=== PATIENT | female | born 2005 | race Two or more races ===

== ENCOUNTER → 2024-01-05 12:05 | Outpatient (REF) | payer OTHER, SELFPAY | LOC: HWRAD 12:05 | PROVIDERS: ATTENDING PHYSICIAN Physician Assistant Medical | DX: R19.7 Diarrhea, unspecified (principal) | CPT/HCPCS: 74177; Q9967 ==

== ENCOUNTER 2024-01-25 06:31 | Day surgery (SDC) | payer OTHER, SELFPAY ==
[2024-01-25 08:39] VITALS: BMI 30.3
[2024-01-25 08:40] VITALS: BP 116/78; BMI 30.3
[2024-01-25 09:46] VITALS: BP 116/73
[2024-01-25 10:00] VITALS: BP 121/77
[2024-01-25 10:12] VITALS: BP 121/79
== END 2024-01-25 10:20 | disposition home or self-care (01) ==
LOC: SDS 06:31
PROVIDERS: ATTENDING PHYSICIAN Internal Medicine Gastroenterology; FAMILY PHYSICIAN Physician Assistant Medical
DX: K51.011 Ulcerative (chronic) pancolitis with rectal bleeding (principal); R19.7 Diarrhea, unspecified; R89.3 Abnormal level of substances chiefly nonmedicinal as to source in specimens from other organs, systems and tissues
CPT/HCPCS: 45380; 88305; 88342

== ENCOUNTER 2024-08-12 06:21 | Day surgery (SDC) | payer OTHER, SELFPAY | END 2024-08-12 11:06 | disposition home or self-care (01) | LOC: GI 06:21 | PROVIDERS: ATTENDING PHYSICIAN Internal Medicine Gastroenterology | DX: K51.00 Ulcerative (chronic) pancolitis without complications (principal) | CPT/HCPCS: 45380; 88305 ==